=== PATIENT | female | born 1950 | race Caucasian/White ===

== ENCOUNTER 2024-05-30 14:44 | Emergency (ER) | payer MEDICARE, BC ==
[~2024-05-30] VITALS: Ht 152.4 cm; Wt 63.5 kg
[2024-05-30] MEDS ORDERED: ROSU10TA2 (15:00)
[2024-05-30] MEDS ORDERED: PROM118S5 PO (16:06)
[2024-05-30] MEDS ORDERED: AZIT500T PO (16:06)
[2024-05-30] MEDS ORDERED: PRED50TA PO (16:06)
[2024-05-30 16:30] VITALS: BP 137/47; TEMP 98; O2SAT 96
== END 2024-05-30 16:31 | disposition home or self-care (01) ==
LOC: ER 14:45
DX: J18.9 Pneumonia, unspecified organism (principal); E78.5 Hyperlipidemia, unspecified; E11.9 Type 2 diabetes mellitus without complications; Z20.822 Contact with and (suspected) exposure to COVID-19; Z79.52 Long term (current) use of systemic steroids
CPT/HCPCS: 71045; A4606; A4663